=== PATIENT | female | born 1950 | race Caucasian/White ===

== ENCOUNTER 2018-03-15 08:00 | Outpatient (CLI) | payer MEDICARE, BC | END 2018-03-15 13:40 | disposition home or self-care (01) | LOC: D.MAMMO 08:00 | DX: Z12.31 Encounter for screening mammogram for malignant neoplasm of breast (principal) ==

== ENCOUNTER 2018-04-19 19:00 | Outpatient (CLI) | payer MEDICARE, BC | END 2018-04-19 23:59 | disposition home or self-care (01) | LOC: D.MAMMO 19:00 | DX: R92.8 Other abnormal and inconclusive findings on diagnostic imaging of breast (principal) ==